=== PATIENT | female | born 1930 | race Caucasian/White ===

== ENCOUNTER 2019-05-25 08:36 | Inpatient (IN) | payer OTHER ==
[~2019-05-25] VITALS: Ht 152.4 cm; Wt 72.6 kg
[~2019-05-25 08:36] MED LIST: ATIVAN0.5 MG PO; BETIMOL15 ML OP; CEFTIN500 MG PO; CYCLOBENZAPRINE5 MG PO; ELIQUIS5 MG PO; K-DUR 20 MEQ T20 MEQ PO; LAMICTAL100 MG PO; LASIX 40 MG TAB40 M1 PO; LEVOTHYROXINE 0.1 MG PO; LIPITOR 20 MG T20 M1 PO; PROZAC10 MG PO; REMERON15 MG PO; SYNTHROID88 MCG PO; TOPROL XL25 MG PO; XALATAN2.5 ML OPHTHALMIC; ZYPREXA 5 MG TAB5 M1 PO
[2019-05-25 08:37] VITALS: BP 148/87
[2019-05-25 09:56] VITALS: BP 158/86
[2019-05-25 10:01] LABS: ABSOLUTE NEUTROPHILS 3.7 thou/uL (1.4-8.2); BASOPHILS 1.1 % (0.0-2.0); EOSINOPHILS 4.8 % (0.0-3.0); HEMATOCRIT 39.6 % (37.0-47.0); HEMOGLOBIN 13.5 gm/dL (12.0-15.0); LYMPHOCYTES 14.2 % (24.0-44.0); MCH 33.6 pg (26.0-34.0); MCHC 34.2 g/dL (28.0-37.0); MCV 98.2 fL (80.0-100.0); MONOCYTES 7.7 % (1.0-8.0); PLATELET COUNT 226 thou/uL (150-400); POLYS 72.2 % (36.0-66.0); RBC 4.03 mil/uL (4.20-5.00); RDW 14.5 % (10.5-14.5); WBC 5.1 thou/uL (4.0-11.0)
[2019-05-25 10:09] LABS: CALCIUM 9.6 mg/dL (8.5-10.1); CREATININE 0.8 mg/dL (0.6-1.0); POTASSIUM 3.7 mmol/L (3.5-5.1)
[2019-05-25 10:23] VITALS: BP 118/74
--- NOTE | 2019-05-25 13:45 | EKG ---
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
--- NOTE | 2019-05-25 14:26 | NUR ---
PATIENT WAS ADMITTED TO [facility] FROM ER FROM A LEFT HIP FX.PATIENT HAD A FALL FROM TRIPPING ON ANOTHER PERSON.PT IS FROM [facility].DAUGHTER IS AT BEDSIDE.PATIENT HAS PAIN ONLY WHEN SHE MOVES AND RATES IT 6/10.PT DOESN'T WANT ANY PAIN MEDS AT THIS TIME.PATIENT WAS EDUCATED ON FALL PRECAUTIONS, AND ORIENTED TO THE ROOM.PT HAS IV SALINE LOCKED.FAMILY IS CURRENTLY WAITING ON DOCTORS TO SPEAK WITH THEM.PT USES BEDPAN.CALL LIGHT,PHONE, AND PERSONAL BELONGINGS ARE WITHIN REACH.
[2019-05-25 16:28] VITALS: BP 98/54
--- NOTE | 2019-05-25 17:17 | NUR ---
ASSESSMENT-PT LIVES IN ASSISTED LIVING AT [facility] [place]. SHE HAD A FALL TODAY GOING TO BE WEIGHED. PT USUALLY USES A CANE OUTSIDE OF HER APT BUT NOT INSIDE. SOMETIMES THEY ASSIST HER WITH HER ADLS AND SOMETIMES SHE TAKES A SHOWER ON HER OWN. SHE HAS A DTR AND CAROLE AND GRANDDTR HERE IN THE [place] AND A GRANDSON IN [place]. 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 PT IS LEGALLY BLIND. PT AWAITING ORTHO CONSULT FOR PLAN. PT HAS BEEN TO REHAB IN THE PAST OUT OF TOWN. FOLLOWING TO ASSIST WITH DC PLANNING.
[2019-05-25 20:15] VITALS: BP 99/59
--- NOTE | 2019-05-26 01:35 | NUR ---
ASSUMED CARE @ 1900. ASSESSMENT COMPLETED. PT A&OX4. V/S WNL. PT SAID WHEN SHE IS NOT MOVING, SHE HAS NO PAIN, BUT WHEN SHE MOVES, HER PAIN GOES UP TO 10. PT WAS MEDICATED WITH TRAMADOL. PT USES THE BEDPAN. FALL PRECAUTION IN PLACE. CALL VELAZQUEZ WITHIN REACH
[2019-05-26 03:50] VITALS: BP 102/52
[2019-05-26 04:53] LABS: ABSOLUTE NEUTROPHILS 3.6 thou/uL (1.4-8.2); BASOPHILS 0.6 % (0.0-2.0); EOSINOPHILS 3.8 % (0.0-3.0); HEMATOCRIT 37.5 % (37.0-47.0); HEMOGLOBIN 12.5 gm/dL (12.0-15.0); LYMPHOCYTES 21.9 % (24.0-44.0); MCH 33.3 pg (26.0-34.0); MCHC 33.3 g/dL (28.0-37.0); MONOCYTES 11.9 % (1.0-8.0); PLATELET COUNT 187 thou/uL (150-400); POLYS 61.8 % (36.0-66.0); RBC 3.75 mil/uL (4.20-5.00); RDW 14.5 % (10.5-14.5); WBC 5.8 thou/uL (4.0-11.0)
[2019-05-26 04:58] LABS: CALCIUM 8.9 mg/dL (8.5-10.1); CREATININE 0.7 mg/dL (0.6-1.0); MAGNESIUM 1.9 mg/dL (1.8-2.4); POTASSIUM 3.4 mmol/L (3.5-5.1)
[2019-05-26 07:16] VITALS: BP 99/55
--- NOTE | 2019-05-26 13:01 | NUR ---
Assessment completed.vss.Pt c/o left hip pain rated 9/10.Tramadol given with am meds and complete relief noted.Pt wanted to resume home meds.Dr Velazquez notified.Pt transfered to [facility] and later to chair for breakfast.Fair endurance noted.Pt now back in bed resting without c/o.Will continue to monitor.
[2019-05-26 15:12] VITALS: BP 108/56
[2019-05-26 19:20] VITALS: BP 118/50
--- NOTE | 2019-05-27 02:54 | NUR ---
ASSUMED CARE OF PT @1900 PT A&OX4 AT THIS SHIFT. PT USES BED [place] AT NIGHT AND IS LEGALLY BLIND. PT TOLD THIS NURSE THAT SHE HAD ADMINISTERED HOME EYE DROPS DUE TO NOT GETTING IT FOR 2 DAYS NOW. HOME MEDS ORDERS IMPLEMENTED AND ACK. THIS NURSE INSTRUCTED PT NOT TO ADMINISTER PERSONAL HOME EYE DROPS AND THAT EYE DROPS WILL BE ADMINISTERED BY NURSES. PT VERBALIZED UNDERSTANDING AND STATED WILL START OTHER HOME MEDS IN THE MORNING. POC DONE, FALL PREC IN PLACE AND CALL LIGHT WITHIN REACH WILL CONTINUE TO MONITOR TILL EOS.
[2019-05-27 04:49] VITALS: BP 118/80
[2019-05-27 08:06] VITALS: BP 107/59
[2019-05-27 10:05] LABS: HEMATOCRIT 39.4 % (37.0-47.0); HEMOGLOBIN 13.3 gm/dL (12.0-15.0); MCH 33.2 pg (26.0-34.0); MCHC 33.7 g/dL (28.0-37.0); MCV 98.5 fL (80.0-100.0); RDW 14.3 % (10.5-14.5); WBC 8.2 thou/uL (4.0-11.0)
[2019-05-27 10:20] LABS: CALCIUM 9.5 mg/dL (8.5-10.1); CREATININE 0.8 mg/dL (0.6-1.0); MAGNESIUM 1.7 mg/dL (1.8-2.4); POTASSIUM 3.6 mmol/L (3.5-5.1)
--- NOTE | 2019-05-27 16:58 | NUR ---
Assumed pt care at 7am.Assessment completed.vss.Assisted pt with tray setup at all meals.Fair appetite.Pt up to bsc with assist and walker early this am,fair endurance noted.Pt was very weak this afternoon and unable to use bsc.Bedpan given.Pt was afraid of getting out of bed and prefered to use bedpan.Pt drt here this evening,updates given.Pt now back in bed resting. Bed alarm on for safety.Will continue to monitor.
[2019-05-27 19:16] VITALS: BP 111/48
--- NOTE | 2019-05-28 02:17 | NUR ---
PT DENIED PAIN SO FAR.REQUESTED ICE PACK TO HER BACK.REPOSITIONED PER REQUEST. NO BM NOTED THIS SHIFT.PT KLUTI KAAH/LEGALLY BLIND IN BOTH EYES.PT CALLS APPROPRIATELY FOR HER NEEDS.FALL PRECAUTIONS IN PLACE,CALL LIGHT WITHIN REACH.
[2019-05-28 03:19] VITALS: BP 119/53
[2019-05-28 05:53] LABS: HEMATOCRIT 35.4 % (37.0-47.0); HEMOGLOBIN 12.1 gm/dL (12.0-15.0); MCHC 34.3 g/dL (28.0-37.0); MCV 99.3 fL (80.0-100.0); RBC 3.57 mil/uL (4.20-5.00); RDW 14.6 % (10.5-14.5); WBC 8.7 thou/uL (4.0-11.0)
[2019-05-28 06:02] LABS: CALCIUM 9.3 mg/dL (8.5-10.1); CREATININE 0.8 mg/dL (0.6-1.0); MAGNESIUM 1.8 mg/dL (1.8-2.4); POTASSIUM 3.6 mmol/L (3.5-5.1)
[2019-05-28 07:02] LABS: URINE BILIRUBIN NEGATIVE (Negative); URINE BLOOD 2+ (Negative); URINE CLARITY CLEAR; URINE GLUCOSE-RANDOM* NEGATIVE (Negative); URINE KETONES NEGATIVE (Negative); URINE LEUKOCYTES-REFLEX NEGATIVE (Negative); URINE NITRITE-REFLEX NEGATIVE (Negative); URINE PROTEIN (DIPSTICK) TRACE (Negative); URINE SPECIFIC GRAVITY 1.025 (1.005-1.035); URINE UROBILINOGEN 0.2 E.U./dl (0.2-1.0)
[2019-05-28 07:04] LABS: URINE COLOR DK YELLOW
[2019-05-28 07:12] VITALS: BP 112/52
--- NOTE | 2019-05-28 07:47 | NUR ---
PATIENT CARE WAS ASSUMED AT 0715.PATIENT IS ALERT AND ORIENTED X4.PATIENT IS RESTINGING IN BED.NO COMPLAINS OF PAIN AT THIS TIME.PATIENT USES BEDPAN.PT IS WORKING WITH PT/OT GETTING OUT OF THE BED, UNTIL THEN PATIENT IS BEING TURNED EVERY 2 HOURS.IV IS PATENT AND SALINE LOCKED.PT HAS CALL LIGHT,PHONE, AND PERSONAL BELONGINGS WITHIN REACH.
[2019-05-28 08:23] VITALS: BP 112/52
[2019-05-28 08:37] LABS: AMORPHOUS URATES Moderate /LPF (None Seen); CASTS None Seen /LPF (None Seen); SQUAMOUS None Seen /LPF (0-3); URINE RBC 0-2 Rare /HPF (0-2)
[2019-05-28 08:38] LABS: BACTERIA-REFLEX 1-9 Few /HPF (None Seen); URINE WBC-REFLEX None Seen /HPF (0-5)
--- NOTE | 2019-05-28 10:46 | NUR ---
PATIENT HAD SOME CONCERNS ABOUT HER RIGHT HIP HURTING.THE HOSPITALIST AND THE ORTHO DOCTOR WAS NOTIFIED OF THE PATIENT'S PAIN AND QUESTIONS PATIENT MAY HAVE ABOUT HER HIP.
--- NOTE | 2019-05-28 12:55 | NUR ---
FAXED REFERRAL TO [facility] SPOKE WITH [facility] IN ADM SHE RECEIVED REFERRAL AND WILL ACCEPT PT AT DC. VAP TO FOLLOW.
[2019-05-28] MEDS ORDERED: COLACE 100 MG100 MG PO (14:58)
[2019-05-28] MEDS ORDERED: TRAMADOL 50 MG50 MG PO (15:00)
--- NOTE | 2019-05-28 15:48 | NUR ---
PATIENT WAS DISCHARGED TO GO TO [facility].PT'S CLOTHES WERE PUT ON.IV WAS TAKEN OUT, GAUZE PLACED, WITH TAPE.PAPERWORK WAS GIVEN TO TRANSPORTATION.PATIENT WAS PICKED UP IN A W/C VAN.REPORT WILL BE CALLED BY NURSE AT [facility].FAMILY IS AT PATIENT'S SIDE.
== END 2019-05-28 15:53 | DRG 535 ==
LOC: ER 08:36 → EROBS 09:41 → 4E 09:41
PROVIDERS: Emergency Medicine; Internal Medicine; Nurse Practitioner; ADMIT Hospitalist
DX: S72.115A Nondisplaced fracture of greater trochanter of left femur, initial encounter for closed fracture (principal); E43 Unspecified severe protein-calorie malnutrition; M97.02XA Periprosthetic fracture around internal prosthetic left hip joint, initial encounter; I50.30 Unspecified diastolic (congestive) heart failure; M19.90 Unspecified osteoarthritis, unspecified site; F32.9 Major depressive disorder, single episode, unspecified; F41.9 Anxiety disorder, unspecified; E78.5 Hyperlipidemia, unspecified; I48.91 Unspecified atrial fibrillation; E03.9 Hypothyroidism, unspecified; I11.0 Hypertensive heart disease with heart failure; H91.90 Unspecified hearing loss, unspecified ear; H40.9 Unspecified glaucoma; Z96.642 Presence of left artificial hip joint; H54.8 Legal blindness, as defined in USA; G25.81 Restless legs syndrome; H35.30 Unspecified macular degeneration; W18.39XA Other fall on same level, initial encounter; F03.90 Unspecified dementia, unspecified severity, without behavioral disturbance, psychotic disturbance, mood disturbance, and anxiety; E87.6 Hypokalemia; E83.42 Hypomagnesemia; Z90.89 Acquired absence of other organs; Z90.710 Acquired absence of both cervix and uterus; Z85.828 Personal history of other malignant neoplasm of skin; Z79.899 Other long term (current) drug therapy; Z87.891 Personal history of nicotine dependence; Y93.89 Activity, other specified; Y92.89 Other specified places as the place of occurrence of the external cause; Y99.8 Other external cause status
CPT/HCPCS: 10084